=== PATIENT | female | born 1990 ===

== ENCOUNTER 2021-11-12 09:40 | Emergency (ER) | payer SELFPAY ==
[2021-11-12 09:51] VITALS: TEMP 97.8
[2021-11-12 10:19] LABS: COLLECTION METHOD CLEAN CATCH
[2021-11-12 10:23] LABS: BASO % 0.4 % (0.0-2.0); EOS # 0.2 K/mm3 (0.0-0.7); GRAN # 6.2 K/mm3 (1.4-6.5); GRAN % 65.7 % (42.2-75.2); HEMATOCRIT 44.6 % (37.0-47.0); HEMOGLOBIN 14.7 g/dl (12.5-16.0); LYMPH # 2.4 K/mm3 (1.2-3.4); LYMPH % 25.2 % (20.0-51.0); MEAN CELL VOLUME 83 fl (80.0-100.0); MEAN CORPUSCULAR HEMOGLOBIN 27 pg (27-31); MEAN CORPUSCULAR HGB CONC 33 g/dl (33.0-37.0); MEAN PLATELET VOLUME 10.4 fl (7.4-10.4); MONO # 0.6 K/mm3 (0.1-0.6); MONO % 6.6 % (1.7-9.3); PLATELET COUNT 305 K/mm3 (130-400); REDCELL DISTRIBUTION WIDTH-CV 13.4 % (11.5-14.5)
[2021-11-12 10:40] LABS: MUCOUS Present (NOT PRESENT); PH 5 (5-8); URINE APPEARANCE Hazy (CLEAR/HAZY); URINE BACTERIA Rare /hpf (NONE SEEN); URINE BILIRUBIN Negative (NEGATIVE); URINE BLOOD 1+ (NEGATIVE); URINE COLOR Yellow (YELLOW); URINE GLUCOSE 3+ (NEGATIVE); URINE KETONE Negative (NEGATIVE); URINE LEUKOCYTE ESTERASE Trace (NEGATIVE); URINE NITRATE Negative (NEGATIVE); URINE PROTEIN(semi-quant) Negative (NEGATIVE); URINE RBC 0-2 /hpf (0-2); URINE UROBILINOGEN Negative (NEGATIVE)
[2021-11-12 10:41] LABS: ALBUMIN 4.6 gm/dL (3.5-5.0); BILIRUBIN,TOTAL 0.6 mg/dL (0.2-1.2); CALCIUM 9.7 mg/dL (8.4-10.2); CREATININE, serum 0.77 mg/dL (0.57-1.11); POTASSIUM 3.9 mmol/L (3.5-4.5); TOTAL PROTEIN 8.8 gm/dL (6.2-8.1)
[2021-11-12] MEDS ORDERED: FLAGYL500 MG PO (11:28)
[2021-11-12 11:55] VITALS: BP 165/115; PULSE 85
[2021-11-14] MEDS ORDERED: CEPHALEXIN500 M1 PO (16:16)
== END 2021-11-12 11:57 | disposition home or self-care (01) ==
LOC: COL.ER 09:40
PROVIDERS: Physician Assistant
DX: B34.9 Viral infection, unspecified (principal); A59.9 Trichomoniasis, unspecified; E11.9 Type 2 diabetes mellitus without complications
CPT/HCPCS: J2405; J7030